=== PATIENT | male | born 1980 | race Caucasian/White ===

== ENCOUNTER 2017-12-05 17:29 | Observation (INO) | payer OTHER ==
--- NOTE | 2017-12-05 17:40 | PDOC ---
Rapid Medical Evaluation Time Seen by Provider: 12/05/17 17:38 Medical Evaluation: 12/05/17 17:48 I have performed a brief in-person evaluation of this patient. The patient presents with a chief complaint of: Dr. Harkins sent for HTN urgency Pertinent physical exam findings: I have ordered the following: labs The patient will proceed to the ED for further evaluation. Discharge Disposition - Diagnosis Hypertensive urgency - Referrals - Patient Instructions - Post Discharge Activity
[2017-12-05 18:37] LABS: BASO % 0.8 % (0-2.0); EOS % 3.1 % (0-4.5); HEMATOCRIT 42.3 % (35.4-49); HEMOGLOBIN 14.1 GM/dL (11.7-16.9); LYMPH % 22.2 % (8-40); MCH 26.6 pg (25.7-33.7); MCHC 33.4 g/dl (32.0-35.9); MEAN CELL VOLUME 79.5 fl (80-96); MEAN PLT VOLUME 8.9 fl (7.5-11.1); MONO % 10.1 % (3.8-10.2); NEUT % 63.8 % (42.8-82.8); PLATELET COUNT 283 K/MM3 (134-434); RBC 5.32 M/mm3 (4.00-5.60); RDW 15.3 % (11.9-15.9); WHITE BLOOD COUNT 9.5 K/mm3 (4.0-10.0)
[2017-12-05 18:46] LABS: INR 1.07 (0.82-1.09); PROTHROMBIN TIME (PATIENT) 12.1 SEC (9.7-13.0)
--- NOTE | 2017-12-05 19:18 | PDOC ---
History of Present Illness - General Chief Complaint: Blood Pressure Problem Stated Complaint: SENT BY PCP Time Seen by Provider: 12/05/17 17:38 History Source: Patient - History of Present Illness Initial Comments: 12/05/17 19:17 Patient is a 37 year old male with a PMH of HTN and HLD who presents to the ED c /o high blood pressure. Patient was evaluated by a regional truck driver today and BP was noted to be 220/140. Patient states he has a h/o BP for which he was prescribed Norvasc (5 mg BID) in early October however he stopped taking the medication 2 weeks previous as it caused headaches and erectile dysfunction. Patient states he has started taking black cumin oil 1-2x weekly for his blood pressure. Patient does not measure his BP at home, but notes at his October appointment with Dr. Ramirez his SBP was in the 190's and his UA showed proteinuria prompting his visit to the regional truck driver today. Patient denies headache, vertigo, visual changes, chest pain, shortness of breath, palpitations. NKDA Surgical:denies Social: denies cigarettes, denies alcohol, denies recreational drugs As per EMR patient's Cr was 2.0 in 09/2017 and 10/2017 and his urine showed 2+ protein on both occasions. Past History - Past Medical History Allergies/Adverse Reactions: Allergies Allergy/AdvReac Type Severity Reaction Status Date / Time No Known Allergies Allergy Verified 12/05/17 17:48 Home Medications: Ambulatory Orders Atorvastatin Ca [Lipitor] 10 mg PO HS 12/05/17 Asthma: Yes COPD: No HTN: Yes Hypercholesterolemia: Yes - Suicide/Smoking/Psychosocial Hx Smoking History: Never smoked Have you smoked in the past 12 months: No Information on smoking cessation initiated: No Hx Alcohol Use: No Drug/Substance Use Hx: No Substance Use Type: None Review of Systems - Review of Systems Constitutional: No: Chills, Fever HEENTM: No: Recent change in vision Respiratory: No: Shortness of Breath Cardiac (ROS): No: Chest Pain, Lightheadedness, Palpitations, Syncope ABD/GI: No: Constipated, Diarrhea, Nausea, Vomiting : No: Burning, Dysuria *Physical Exam - Vital Signs Last Vital Signs Temp Pulse Resp BP Pulse Ox 98.6 F 77 18 224/147 100 12/05/17 17:50 12/05/17 17:50 12/05/17 17:50 12/05/17 17:50 12/05/17 17:50 - Physical Exam Comments: 12/05/17 22:41 GENERAL: Awake, alert, and fully oriented, in no acute distress, obese HEAD: No signs of trauma EYES: PERRLA, EOMI, sclera anicteric, conjunctiva clear ENT: Auricles normal inspection, hearing grossly normal, nares patent, oropharynx clear without exudates. Moist mucosa LUNGS: Breath sounds equal, clear to auscultation bilaterally. No wheezes, and no crackles HEART: Regular rate and rhythm, normal S1 and S2, no murmurs, rubs or gallops ABDOMEN: Soft, nontender, normoactive bowel sounds. No guarding, no rebound. No masses EXTREMITIES: Normal range of motion, no edema. No clubbing or cyanosis. No cords, erythema, or tenderness NEUROLOGICAL: Cranial nerves II through XII intact. 5/5 strength and sensation in all extremities, SKIN: Warm, Dry, normal turgor, no rashes or lesions noted. ED Treatment Course - LABORATORY CBC & Chemistry Diagram: 12/05/17 18:23 12/05/17 18:23 - ADDITIONAL ORDERS Additional order review: Laboratory Results 12/05/17 18:23 PT with INR 12.10 INR 1.07 12/05/17 18:23 RBC 5.32 MCV 79.5 L MCHC 33.4 RDW 15.3 MPV 8.9 Neutrophils % 63.8 Lymphocytes % 22.2 Monocytes % 10.1 Eosinophils % 3.1 Basophils % 0.8 Medical Decision Making - Medical Decision Making 12/05/17 19:21 37 year old male presents with asymptomatic hypertensive emergency (noted to have proteinuria) with BP 220/140 @ nephrology office today. At presentation BP 224/147. As patient has not taken prescribed Norvasc (10 mg) will give OTD and repeat BP. CMP pending. 12/05/17 19:21 ECG shows HR 73, no deviations, normal intervals, possible LVH, good R wave progession V1-V6. No acute ischemia. 12/05/17 21:01 Repeat BP 241/154, CMP shows Cr 1.8 (2.0 in 10/2017), 2+ proteinuria 12/05/17 22:26 BP remains elevated 230/152. Will give 10 IV Labetalol and repeat BP. Likely admit for BP control. 12/05/17 23:06 Repeat BP 203/137 12/05/17 23:46 Case d/w hospitalist admission team. Will give Hydralazine (10 mg) and admit to observation telemetry for continued BP control. Patient and patient's family counseled on POC. *DC/Admit/Observation/Transfer Diagnosis at time of Disposition: Hypertensive urgency - Referrals - Patient Instructions - Post Discharge Activity
--- NOTE | 2017-12-05 19:21 | PDOC ---
Attending Attestation - Resident Resident Name: Sofi Recinos - ED Attending Attestation I have performed the following: I have examined & evaluated the patient, The case was reviewed & discussed with the resident, I agree w/resident's findings & plan, Exceptions are as noted - HPI HPI: 12/05/17 19:23 37 y M hx of htn, hl, referred to the ED by integrated circuit ic layout designer for evaluation of htn. Pt was started on norvasc and was titrated up to 10mg about 2 months ago, but he stopped taking it 1.5 months ago. Pt otherwise asymptomatic, without any headache, dizziness, vision changes, cp, sob, palpitations, abd pain, back pain , numbness/tingling/weakness. bp elevated GENERAL: The patient is awake, alert, and fully oriented, Nontoxic - in no acute distress. HEAD: Normocephalic, atraumatic. EYES: extraocular movements intact, sclera anicteric, conjunctiva clear. ENT: Normal voice, Moist mucous membranes. NECK: Normal range of motion, supple LUNGS: Breath sounds equal, clear to auscultation bilaterally. No wheezes, no rhonchi, no rales. HEART: Regular rate and rhythm, normal S1 and S2 without murmur, rub or gallop. ABDOMEN: Soft, nontender, normoactive bowel sounds. No guarding, no rebound. No CVA tenderness EXTREMITIES: Normal range of motion, trace edema. No clubbing or cyanosis. No cords, erythema, or tenderness. NEUROLOGICAL: No facial assymetry, Normal speech, PSYCH: Normal mood, normal affect. SKIN: Warm, Dry, normal turgor Asymptomatic hypertension Per the patient's former blood work he appears have CK D with baseline creatinine of 2 We'll give the patient his Norvasc will reassess his BP Will discuss with PMD - Physicial Exam PE: 12/06/17 08:29 see above - Medical Decision Making 12/06/17 01:29 pt persistently htn even after iv labetalol will obs for better bp control labs reviewed and unremarkble pt still asypmtmoatic Heart Score/ECG Review - ECG Impressions Comment:: 12/05/17 21:04 Twelve-lead EKG was performed and reviewed by me. There is normal sinus rhythm with a normal rate. rate of 73 The axis is normal. The intervals are normal. Voltage container for LVH
[2017-12-05 19:26] LABS: ALBUMIN 4.2 g/dl (3.4-5.0); ANION GAP 6 (8-16); BLOOD UREA NITROGEN 29 mg/dL (7-18); CALCIUM 9.2 mg/dL (8.5-10.1); CHLORIDE 105 mmol/L (98-107); CO2 28 mmol/L (21-32); CREATININE 1.8 mg/dL (0.7-1.3); GLUCOSE,RANDOM 88 mg/dL (74-106); POTASSIUM 3.6 mmol/L (3.5-5.1); SGOT/AST 16 U/L (15-37); SGPT/ALT 29 U/L (12-78); SODIUM 139 mmol/L (136-145)
[2017-12-05 19:28] LABS: ALK PHOS 87 U/L (45-117); BILIRUBIN,TOTAL 0.3 mg/dL (0.2-1.0); TOT PROT 8.1 g/dl (6.4-8.2)
[2017-12-05] MEDS ORDERED: amLODIPine BESYLATE 10 MG TABLET (FP) PO ONE (19:50)
[2017-12-05] MEDS ORDERED: amLODIPine BESYLATE 5 MG TABLET (FP) ONE (20:19)
[2017-12-05 20:47] LABS: URINE APPEARANCE CLEAR; URINE BILIRUBIN NEGATIVE (<2.0 mg/dL); URINE BLOOD 1+ (NEGATIVE); URINE COLOR LTYELLOW; URINE GLUCOSE (UA) NEGATIVE (NEGATIVE); URINE KETONE NEGATIVE (NEGATIVE); URINE LEUK ESTERASE TRACE (NEGATIVE); URINE NITRITE NEGATIVE (NEGATIVE); URINE UROBILINOGEN NEGATIVE mg/dL (0.2-1.0)
[2017-12-05 21:00] LABS: URINE PROTEIN 2+ (NEGATIVE)
[2017-12-05] MEDS ORDERED: LABETALOL HCL 5 MG/1 ML (100MG/20 ML VIAL) IVPUSH ONE ×2 (22:29→23:37)
[2017-12-05] MEDS ORDERED: LABETALOL HCL 5 MG/1 ML (200MG/40ML VIAL) IVPB ONE (22:31)
--- NOTE | 2017-12-05 23:20 | PN ---
Teaching Attending Note Name of Resident: Cielo Ochoa ATTENDING PHYSICIAN STATEMENT I saw and evaluated the patient. I reviewed the resident's note and discussed the case with the resident. I agree with the resident's findings and plan as documented. SUBJECTIVE: 37 F with hx. of HTN and HLD who presents for HTN urgency. States she was started on Norvasc 2 months ago, but stopped taking it. No dizziness, headaches , lightheadedness or visual changes. No chest pain, pressure, or shortness of breath. States his blood pressure has been 190s over the past several years. States he currently feels well and has no complaints. OBJECTIVE: Physical: VS: Vital Signs Period Temp Pulse Resp BP Sys/Mueller Pulse Ox Last 24 Hr 98.6 F 74-77 18-18 197-230/139-154 100-100 GEN: NAD, Resting in bed, AA0X3 HEENT: NCAT, PERRL, throat without erythema or exudates CARD: RRR S1, S2 RESP: CTAB ABD: BSx4, NTD to palpation EXT:-C/C/E CBCD WBC 9.5 K/mm3 (4.0-10.0) 12/05/17 18: RBC 5.32 M/mm3 (4.00-5.60) 12/05/17 18:23 Hgb 14.1 GM/dL (11.7-16.9) 12/05/17 18: Hct 42.3 % (35.4-49) 12/05/17 18: MCV 79.5 fl (80-96) L 12/05/17 18: MCHC 33.4 g/dl (32.0-35.9) 12/05/17 18: RDW 15.3 % (11.9-15.9) 12/05/17 18: Plt Count 283 K/MM3 (134-434) 12/05/17 18: MPV 8.9 fl (7.5-11.1) 12/05/17 18: CMP Sodium 139 mmol/L (136-145) 12/05/17 18:23 Potassium 3.6 mmol/L (3.5-5.1) 12/05/17 18: Chloride 105 mmol/L (98-107) 12/05/17 18:23 Carbon Dioxide 28 mmol/L (21-32) 12/05/17 18:23 Anion Gap 6 (8-16) L 12/05/17 18:23 BUN 29 mg/dL (7-18) H 12/05/17 18:23 Creatinine 1.8 mg/dL (0.7-1.3) H 12/05/17 18:23 Creat Clearance w eGFR 42.67 (>60) 12/05/17 18: Random Glucose 88 mg/dL (74-106) 12/05/17 18: Calcium 9.2 mg/dL (8.5-10.1) 12/05/17 18: Total Bilirubin 0.3 mg/dL (0.2-1.0) D 12/05/17 18: AST 16 U/L (15-37) D 12/05/17 18: ALT 29 U/L (12-78) D 12/05/17 18:23 Alkaline Phosphatase 87 U/L (45-117) 12/05/17 18: Total Protein 8.1 g/dl (6.4-8.2) 12/05/17 18: Albumin 4.2 g/dl (3.4-5.0) 12/05/17 18:23 EKG: Twelve-lead EKG was performed and reviewed by me. There is normal sinus rhythm with a normal rate. rate of 73 The axis is normal. The intervals are normal. Voltage container for LVH ASSESSMENT AND PLAN: 37 F with HTN urgency 1.) HTN Urgency - Amlodipine - S/P Labetolol in Ed - Hydralazine - Slowly titrate BP down - Echo - Trend Trop/Ekg - Cardiac Monitoring - Cardio Consult 2.) KEISHA - U Lytes - Nephro consult - RENAL US - Renally Dose all meds 3.) Dvt Ppx - SCDS Place in Obs-Tele
[2017-12-05] MEDS ORDERED: hydrALAZINE HCL 10 MG TABLET PO ONE (23:40)
[2017-12-05 23:58] LABS: URINE MUCUS RARE
--- NOTE | 2017-12-06 00:33 | HP ---
CHIEF COMPLAINT: Elevated BP PCP: Dr Ramirez HISTORY OF PRESENT ILLNESS: 37yo M with a PMHx of Uncontrolled HTN was sent to the ER due to elevated BPs. Patient is prescribed Norvasc 5 BID but refuses to take it due to a conglomeration of sfx including erectile dysfunction and skin itching. Instead he takes black cumin seed oil for his pressures. His BPs have been elevated for a while, states when he goes to a local pharmacy and gets his BP checked its always 190s-200s. Routine labwork at Dr Ramirez's office showed proteinuria and he was referred to Dr Adams's office. He went there this AM, had his BP taken, and was sent to the ER. He is asymptomatic. Denies CP, SOB, blury vision, headaches, back pain, etc. On arrival to the ED, his BP was 224/147. After PO Norvasc 10 and IV Labetalol 10 push, his BP gradually came down to 197/139. Labs indicate elevated Cr (at baseline), and 2+ proteinuria Recent Travel: Denies PAST MEDICAL HISTORY: HTN PAST SURGICAL HISTORY: Denies Social History: Smoking: Denies Alcohol: Denies Drugs: Denies Allergies: No Known Allergies Allergy (Verified 12/05/17 17:48) HOME MEDICATIONS: Home Medications Medication Instructions Recorded Atorvastatin Ca [Lipitor] 10 mg PO HS 12/05/17 REVIEW OF SYSTEMS CONSTITUTIONAL: Absent: fever, chills, diaphoresis, generalized weakness, malaise, loss of appetite, weight change HEENT: Absent: rhinorrhea, nasal congestion, throat pain, throat swelling, difficulty swallowing, mouth swelling, ear pain, eye pain, visual changes CARDIOVASCULAR: Absent: chest pain, syncope, palpitations, irregular heart rate , lightheadedness, peripheral edema RESPIRATORY: Absent: cough, shortness of breath, dyspnea with exertion, orthopnea, wheezing, stridor, hemoptysis GASTROINTESTINAL:Absent: abdominal pain, abdominal distension, nausea, vomiting , diarrhea, constipation, melena, hematochezia GENITOURINARY: Absent: dysuria, frequency, urgency, hesitancy, hematuria, flank pain, genital pain MUSCULOSKELETAL: Absent: myalgia, arthralgia, joint swelling, back pain, neck pain SKIN: Absent: rash, itching, pallor HEMATOLOGIC/IMMUNOLOGIC: Absent: easy bleeding, easy bruising, lymphadenopathy, frequent infections ENDOCRINE:Absent: unexplained weight gain, unexplained weight loss, heat intolerance, cold intolerance NEUROLOGIC: Absent: headache, focal weakness or paresthesias, dizziness, unsteady gait, seizure, mental status changes, bladder or bowel incontinence PSYCHIATRIC: Absent: anxiety, depression, suicidal or homicidal ideation, hallucinations. PHYSICAL EXAMINATION Vital Signs Period Temp Pulse Resp BP Sys/Mueller Pulse Ox Last 24 Hr 98.6 F 74-77 18-18 197-230/139-154 100-100 GEN: AAOx3, NAD, but slightly anxious appeaing HEENT: PERRLA, EOMi, no JVD CV: S1, S2, RRR LUNG: CTABL ABD: Soft, NT, ND MSK: No edema, no erythema NEURI: CN 2-12 intact, no msk or sensation deficits, no facial droop ASSESSMENT/PLAN: 37yo M with a PMHx of Uncontrolled HTN was sent to the ER due to elevated BPs, found to have HTN urgency # HTN Urgency -- In the setting of chronic uncontrolled HTN. BP has been slowly improving. Will titrate up hydralazine. Tomorrow, we will start Norvasc and Metoprolol for better BP control. Tele monitoring for BP. EKG shows LVH. Cardiac profile. Echo to look for cardiac changes. Consult cardio # Elevated Cr w/ Proteinuria -- Cr is at baseline and proteinuria is unchanged. This is likely related to his chronic HTN, but will likely need further w/u. Consult Dr Adams. Urine electrolytes. Kidney u/s. Lipid profile to check for HLD # FEN/PPx --No IVF, sodium controlled diet, SCDs # Dispo -- Obs Tele Case d/w Dr Ochoa & Dr Job Holm MD - PGY1 Night Tester Sound Visit type - Emergency Visit Emergency Visit: Yes ED Registration Date: 12/05/17 Care time: The patient presented to the Emergency Department on the above date and was hospitalized for further evaluation of their emergent condition. - New Patient This patient is new to me today: Yes Date on this admission: 12/06/17 - Critical Care Critical Care patient: No Hospitalist Screening - Colonoscopy Questionnaire Colonoscopy Questionnaire: Colonoscopy Questionnaire - Patient: 50 - 75 years old and never had a screening colonoscopy: Unknown History of colon or rectal polyps, or CA: Unknown History of IBD, Crohn's disease or UC: Unknown History of abdominal radiation therapy as a child: Unknown - Relative: 1 with colon or rectal CA, or polyps at age 60 or younger: Unknown Colon or rectal CA diagnosed at age 45 or younger: Unknown Multiple relatives with colon or rectal CA: Unknown - Outcome: Screening Result: Negative Screen
[2017-12-06 01:34] LABS: URINE CREATININE 61.5 mg/dL (20-370)
[2017-12-06 02:54] VITALS: BMI 29.2
[2017-12-06] MEDS ORDERED: hydrALAZINE HCL 25 MG TABLET (FP) PO ONE (03:07)
[2017-12-06] MEDS ORDERED: hydrALAZINE HCL 25 MG TABLET (FP) PO SCH (06:30)
[2017-12-06] MEDS ORDERED: hydrALAZINE HCL 10 MG TABLET PO SCH ×2 (06:30→10:00)
[2017-12-06 07:54] LABS: HEMATOCRIT 40.5 % (35.4-49); HEMOGLOBIN 13.8 GM/dL (11.7-16.9); MCH 26.7 pg (25.7-33.7); MCHC 34.1 g/dl (32.0-35.9); MEAN CELL VOLUME 78.4 fl (80-96); MEAN PLT VOLUME 9.1 fl (7.5-11.1); PLATELET COUNT 289 K/MM3 (134-434); RBC 5.16 M/mm3 (4.00-5.60); RDW 15.3 % (11.9-15.9); WHITE BLOOD COUNT 10.3 K/mm3 (4.0-10.0)
[2017-12-06 07:58] LABS: ANION GAP 7 (8-16); BLOOD UREA NITROGEN 25 mg/dL (7-18); CALCIUM 8.9 mg/dL (8.5-10.1); CHLORIDE 105 mmol/L (98-107); CO2 28 mmol/L (21-32); GLUCOSE,RANDOM 85 mg/dL (74-106); MAGNESIUM 2.3 mg/dL (1.8-2.4); POTASSIUM 3.4 mmol/L (3.5-5.1); SODIUM 140 mmol/L (136-145)
[2017-12-06 08:00] LABS: CREATININE 1.6 mg/dL (0.7-1.3); PHOSPHOROUS 4.1 mg/dL (2.5-4.9)
--- NOTE | 2017-12-06 08:18 | CON.CARD ---
Consult Consult Specialty:: Cardiology Referred by:: Hospitalist Medicine Reason for Consultation:: Hypertensive urgency - History of Present Illness Chief Complaint: Headache History of Present Illness: 37 F with hx. of HTN, proteinuria and HLD who presents for HTN urgency. He was started on Norvasc 2 months ago, but stopped taking it due to headache and erectile dysfujnction. He denies associated dizziness, headaches, lightheadedness, true syncope or visual changes. No chest pain, pressure, or shortness of breath. States his blood pressure has been 190s over the past several years. States he currently feels well and has no complaints. - History Source History Provided By: Patient Limitations to Obtaining History: No Limitations - Alcohol/Substance Use Hx Alcohol Use: No - Smoking History Smoking history: Never smoked Have you smoked in the past 12 months: No Home Medications - Allergies Allergies/Adverse Reactions: Allergies Allergy/AdvReac Type Severity Reaction Status Date / Time No Known Allergies Allergy Verified 12/05/17 17:48 - Home Medications Home Medications: Ambulatory Orders Atorvastatin Ca [Lipitor] 10 mg PO HS 12/05/17 Review of Systems - Review of Systems Neurological: reports: Headache Vital Signs: Vital Signs Temperature 97.9 F 12/06/17 06:00 Pulse Rate 75 12/06/17 06:00 Respiratory Rate 18 12/06/17 06:00 Blood Pressure 204/134 12/06/17 06:00 O2 Sat by Pulse Oximetry (%) 100 12/06/17 01:30 Constitutional: Yes: No Distress, Calm Neck: Yes: Supple Respiratory: Yes: Regular, CTA Bilaterally Gastrointestinal: Yes: Normal Bowel Sounds, Soft Cardiovascular: Yes: Regular Rate and Rhythm JVD: No Carotid Bruit: No Heart Sounds: Yes: S1, S2 Edema: No - Other Data Labs, Other Data: CBC, BMP 12/06/17 06:37 INR, PTT INR 1.07 (0.82-1.09) 12/05/17 18:23 Troponin, BNP 12/06/17 00:00 Troponin I 0.03 Troponin, BNP 12/06/17 00:00 Troponin I 0.03 NSR LVH Ejection Fraction %: LVEF > or = 40 % Imaging - Results Ultrasound: Report Reviewed (Normal kidneys without hydronephrosis) Problem List - Problems (1) [id number] kidney injury Code(s): N17.9 - ACUTE KIDNEY FAILURE, UNSPECIFIED; N18.9 - CHRONIC KIDNEY DISEASE, UNSPECIFIED Qualifiers: Chronic kidney disease stage: stage 2 (mild) (2) Hypertensive urgency Code(s): I16.0 - HYPERTENSIVE URGENCY Assessment/Plan 1. Hypertensive urgency 2. Acute on CKD with underlying proteinuria due to above improving P:1. Change Lopressor to carvedilol, continue Norvasc, change hydralazine to ARB once renal fxn stabilizes with uptitration as tolerated 2. F/u echocardiogram to assess ventricular and valve fxn 3. Renovascular ultrasound to r/o renal artery stenosis, work-up for secondary causes of hypertension 4. Thank you for consultative opportunity
[2017-12-06] MEDS: CARVEDILOL 6.25 MG TABLET (FP) PO SCH ×2 (09:04→21:15)
[2017-12-06] MEDS ORDERED: amLODIPine BESYLATE 10 MG TABLET (FP) PO SCH (10:00)
[2017-12-06] MEDS ORDERED: METOPROLOL TARTRATE 25 MG TABLET (FP) PO SCH ×2 (10:00)
--- NOTE | 2017-12-06 10:17 | EKG ---
Test Reason : Blood Pressure : / mmHG Vent. Rate : 073 BPM Atrial Rate : 073 BPM P-R Int : 158 ms QRS Dur : 098 ms QT Int : 430 ms P-R-T Axes : 002 -10 -05 degrees QTc Int : 473 ms NORMAL SINUS RHYTHM VOLTAGE CRITERIA FOR LEFT VENTRICULAR HYPERTROPHY ABNORMAL ECG NO PREVIOUS ECGS AVAILABLE Confirmed by MD WOODROW, MELISSA ([id number]) on 12/06/2017 10:17:00 AM Referred By: Confirmed By:MELISSA TROY MD
[2017-12-06] MEDS ORDERED: hydrALAZINE HCL 20 MG/ML VIAL IVPUSH PRN (10:43)
--- NOTE | 2017-12-06 11:03 | PN ---
Progress Note (short form) - Note Progress Note: Pt examined Events noted BP very high-- 192/125 HR- 88 Pt is asymptomatic No headaches, blurry vision, sob , chest pain S1 S2 RRR No murmurs Lungs clear no edema Vital Signs - 24 hr 12/05/17 12/05/17 12/05/17 17:50 20:28 22:15 Temperature 98.6 F Pulse Rate 77 Pulse Rate [ 77 75 Radial] Respiratory 18 18 18 Rate Blood Pressure 224/147 Blood Pressure 223/154 230/152 [Right Arm] O2 Sat by Pulse 100 100 100 Oximetry (%) 12/05/17 12/05/17 12/06/17 23:20 23:45 01:30 Temperature 97.6 F Pulse Rate 67 71 Pulse Rate [ 74 Radial] Respiratory 18 18 18 Rate Blood Pressure 193/129 Blood Pressure 197/139 [Right Arm] O2 Sat by Pulse 100 100 100 Oximetry (%) 12/06/17 12/06/17 12/06/17 04:00 06:00 08:06 Temperature 97.5 F L 97.9 F Pulse Rate 67 75 Pulse Rate [ Radial] Respiratory 18 18 18 Rate Blood Pressure 186/117 204/134 Blood Pressure [Right Arm] O2 Sat by Pulse 100 Oximetry (%) 12/06/17 09:00 Temperature 98.2 F Pulse Rate 82 Pulse Rate [ Radial] Respiratory 18 Rate Blood Pressure 189/112 Blood Pressure [Right Arm] O2 Sat by Pulse Oximetry (%) Current Medications Generic Name Dose Route Start Last Admin Trade Name Freq PRN Reason Stop Dose Admin Carvedilol 6.25 mg 12/06/17 10:00 12/06/17 09:04 Coreg - PO 6.25 mg BID [facility] Administration Hydralazine HCl 10 mg 12/06/17 10:43 Apresoline Injection - IVPUSH Q6H PRN HYPERTENSION Hydralazine HCl 50 mg 12/06/17 10:44 Apresoline - PO TID ADAL Lisinopril 10 mg 12/06/17 11:00 Prinivil PO DAILY [facility] Laboratory Results - last 24 hr 12/05/17 12/05/17 12/05/17 18:23 18:23 18:23 WBC 9.5 RBC 5.32 Hgb 14.1 Hct 42.3 MCV 79.5 L MCH 26.6 MCHC 33.4 RDW 15.3 Plt Count 283 MPV 8.9 Neutrophils % 63.8 Lymphocytes % 22.2 Monocytes % 10.1 Eosinophils % 3.1 Basophils % 0.8 PT with INR 12.10 INR 1.07 Sodium 139 Potassium 3.6 Chloride 105 Carbon Dioxide 28 Anion Gap 6 L BUN 29 H Creatinine 1.8 H Creat Clearance w eGFR 42.67 Random Glucose 88 Calcium 9.2 Phosphorus Magnesium Total Bilirubin 0.3 D AST 16 D ALT 29 D Alkaline Phosphatase 87 Troponin I Total Protein 8.1 Albumin 4.2 Urine Color Urine Appearance Urine pH Ur Specific [place] Urine Protein Urine Glucose (UA) Urine Ketones Urine Blood Urine Nitrite Urine Bilirubin Urine Urobilinogen Ur Leukocyte Esterase Urine WBC (Auto) Urine RBC (Auto) Urine Mucus Ur Random Sodium Ur Random Potassium Ur Random Chloride Urine Creatinine 12/05/17 12/06/17 12/06/17 20:20 00:00 00:24 WBC RBC Hgb Hct MCV MCH MCHC RDW Plt Count MPV Neutrophils % Lymphocytes % Monocytes % Eosinophils % Basophils % PT with INR INR Sodium Potassium Chloride Carbon Dioxide Anion Gap BUN Creatinine Creat Clearance w eGFR Random Glucose Calcium Phosphorus Magnesium Total Bilirubin AST ALT Alkaline Phosphatase Troponin I 0.03 Total Protein Albumin Urine Color Ltyellow Urine Appearance Clear Urine pH 5.0 Ur Specific [place] 1.017 Urine Protein 2+ H Urine Glucose (UA) Negative Urine Ketones Negative Urine Blood 1+ H Urine Nitrite Negative Urine Bilirubin Negative Urine Urobilinogen Negative Ur Leukocyte Esterase Trace Urine WBC (Auto) 3 Urine RBC (Auto) 2 Urine Mucus Rare Ur Random Sodium 93 Ur Random Potassium 22.4 Ur Random Chloride 96 Urine Creatinine 61.5 12/06/17 12/06/17 06:37 06:37 WBC 10.3 H RBC 5.16 Hgb 13.8 Hct 40.5 MCV 78.4 L MCH 26.7 MCHC 34.1 RDW 15.3 Plt Count 289 MPV 9.1 Neutrophils % Lymphocytes % Monocytes % Eosinophils % Basophils % PT with INR INR Sodium 140 Potassium 3.4 L Chloride 105 Carbon Dioxide 28 Anion Gap 7 L BUN 25 H Creatinine 1.6 H Creat Clearance w eGFR Random Glucose 85 Calcium 8.9 Phosphorus 4.1 Magnesium 2.3 Total Bilirubin AST ALT Alkaline Phosphatase Troponin I Total Protein Albumin Urine Color Urine Appearance Urine pH Ur Specific [place] Urine Protein Urine Glucose (UA) Urine Ketones Urine Blood Urine Nitrite Urine Bilirubin Urine Urobilinogen Ur Leukocyte Esterase Urine WBC (Auto) Urine RBC (Auto) Urine Mucus Ur Random Sodium Ur Random Potassium Ur Random Chloride Urine Creatinine PLAN DC Norvasc-- h/o erectile dysfunction Increase Hydralazine HYdralazine IVPB PRN Add Lisinopril spoke with Renal on Coreg renal sono noted Problem List - Problems (1) [id number] kidney injury Code(s): N17.9 - ACUTE KIDNEY FAILURE, UNSPECIFIED; N18.9 - CHRONIC KIDNEY DISEASE, UNSPECIFIED Qualifiers: Chronic kidney disease stage: stage 2 (mild) (2) Hypertensive urgency Code(s): I16.0 - HYPERTENSIVE URGENCY
[2017-12-06] MEDS: LISINOPRIL 10 MG TABLET (FP) PO SCH (11:28)
[2017-12-06] MEDS: hydrALAZINE HCL 50 MG TABLET (FP) PO SCH ×2 (13:53→21:15)
--- NOTE | 2017-12-06 15:22 | CONSULT ---
Consult - text type - Consultation Consultation Note: Renal Consult for CKD and Uncontrolled Hypertension This is a 37 year old gentleman that was seen in our office yesterday with PMhx of CKD, Hypertension, Hyperlipidemia sent to ED with hypertensive urgency/ emergency. Pt reports he self d/c his amlodipine b/c of erectile dysfunction. Pt started on Amlodipine, Hydralazine with mild improvement in BP. Pt makes urine, no abd pain, N/V/D. No flank pain. No hematuria. Denies any NSAIDs. No VENCES , confusion, lethargy or weakness. PMhx: as above Allergies: NKDA Family Hx: Yasmin with ICH/Cerebral aneurysm, Father ESRD on HD Social Hx: No T/A/D Home Medications Medication Instructions Recorded Atorvastatin Ca [Lipitor] 10 mg PO HS 12/05/17 Vital Signs Temperature 98.8 F 12/06/17 14:00 Pulse Rate 84 12/06/17 14:00 Respiratory Rate 16 12/06/17 14:00 Blood Pressure 182/106 12/06/17 14:00 O2 Sat by Pulse Oximetry (%) 100 12/06/17 08:06 Intake & Output 12/03/17 12/04/17 12/05/17 12/06/17 23:59 23:59 23:59 23:59 Intake Total 650 Balance 650 Weight 90.718 kg 89.63 kg NAD awake and alert RRR, no M/R CTA soft NT/ND, no Abd bruit No LE edema, clubbing or cyanosis No bladder distension CBC, BMP 12/06/17 06:37 12/06/17 06:37 Current Medications Carvedilol (Coreg -) 6.25 mg PO BID [facility] Last Admin: 12/06/17 09:04 Dose: 6.25 mg Hydralazine HCl (Apresoline Injection -) 10 mg IVPUSH Q6H PRN PRN Reason: HYPERTENSION Hydralazine HCl (Apresoline -) 50 mg PO TID [facility] Last Admin: 12/06/17 13:53 Dose: 50 mg Lisinopril (Prinivil) 10 mg PO DAILY [facility] Last Admin: 12/06/17 11:28 Dose: 10 mg 37 year old gentleman that was seen in our office yesterday with PMhx of CKD, Hypertension, Hyperlipidemia sent to ED with hypertensive urgency/emergency. Pt reports he self d/c his amlodpine b/c of erectile dysfunction. #Uncontrolled Hypertension/Hypertensive urgency #CKD vs. KEISHA #Hyperlipidemia #Hypokalemia Agree with restarting amlodipine Start Lisinpril 10mg Daily (Cr this admission is improved from 2 as outpatient) goal BP ~180/100 today Check Renin, Aldosterone, Renal Artery Doppler, Cortisol Trend BUN/Cr and electrolytes daily Trend K daily Low salt diet Nutrition consult for low sodium diet Monitor in hospital for now Thank you Will follow Torin Adams DO
[2017-12-07] MEDS: hydrALAZINE HCL 50 MG TABLET (FP) PO SCH ×2 (05:24→13:50)
[2017-12-07 07:28] LABS: CHLORIDE 105 mmol/L (98-107); POTASSIUM 3.7 mmol/L (3.5-5.1); SODIUM 138 mmol/L (136-145)
[2017-12-07 07:39] LABS: ANION GAP 8 (8-16); BLOOD UREA NITROGEN 34 mg/dL (7-18); CHOLESTEROL 194 mg/dL (50-200); CO2 25 mmol/L (21-32); CREATININE 2.2 mg/dL (0.7-1.3); GLUCOSE,RANDOM 89 mg/dL (74-106); HDL CHOLESTEROL 42 mg/dL (40-60); LDL CHOLESTEROL (ONLY SJRH) 131 mg/dL (5-100); TRIGLYCERIDES 176 mg/dL (35-160)
--- NOTE | 2017-12-07 09:36 | PN ---
Progress Note, Physician History of Present Illness: BP improved, denies symptoms. - Current Medication List Current Medications: Active Medications Carvedilol (Coreg -) 6.25 mg PO BID [facility] Last Admin: 12/06/17 21:15 Dose: 6.25 mg Hydralazine HCl (Apresoline Injection -) 10 mg IVPUSH Q6H PRN PRN Reason: HYPERTENSION Hydralazine HCl (Apresoline -) 50 mg PO TID [facility] Last Admin: 12/07/17 05:24 Dose: 50 mg Lisinopril (Prinivil) 10 mg PO DAILY [facility] Last Admin: 12/06/17 11:28 Dose: 10 mg - Objective Vital Signs: Vital Signs Temperature 98.8 F 12/07/17 05:28 Pulse Rate 76 12/07/17 05:28 Respiratory Rate 14 12/07/17 05:28 Blood Pressure 151/96 12/07/17 05:28 O2 Sat by Pulse Oximetry (%) 96 12/07/17 05:00 Constitutional: Yes: No Distress, Calm Neck: Yes: Supple Cardiovascular: Yes: Regular Rate and Rhythm Respiratory: Yes: Regular, CTA Bilaterally Gastrointestinal: Yes: Normal Bowel Sounds, Soft Edema: No Labs: CBC, BMP 12/06/17 06:37 12/07/17 06:25 INR, PTT INR 1.07 (0.82-1.09) 12/05/17 18:23 - ....Imaging EKG: Report Reviewed (Tele: SR) Problem List - Problems (1) [id number] kidney injury Code(s): N17.9 - ACUTE KIDNEY FAILURE, UNSPECIFIED; N18.9 - CHRONIC KIDNEY DISEASE, UNSPECIFIED Qualifiers: Chronic kidney disease stage: stage 2 (mild) (2) Hypertensive urgency Code(s): I16.0 - HYPERTENSIVE URGENCY (3) Proteinuria Code(s): R80.9 - PROTEINURIA, UNSPECIFIED Qualifiers: Proteinuria type: unspecified Qualified Code(s): R80.9 - Proteinuria, unspecified Assessment/Plan 12/06/2017 Echo: Mild-mod cLVH, normal biventricular size and fxn, normal biatrial sizes, abnl LV compliance 1. Hypertensive urgency improving with underlying hypertensive cardiomyopathy 2. Acute on CKD with underlying proteinuria 3, Hyperlipidemia P:1. Increase carvedilol 12.5 bid, continue hydralazine 50 tid and lisinopril 10 qd with monitor renal fxn, electrolytes and uptitration as tolerated 2. Renovascular ultrasound to r/o renal artery stenosis, work-up for secondary causes of hypertension including Renin, Aldosterone, Cortisol, may be followed as outpatient
[2017-12-07] MEDS ORDERED: CARVEDILOL 12.5 MG TABLET (FP) PO SCH (10:00)
[2017-12-07] MEDS: LISINOPRIL 10 MG TABLET (FP) PO SCH (10:05)
--- NOTE | 2017-12-07 13:19 | DS ---
Physical Examination Vital Signs: Vital Signs Temperature 98.2 F 12/07/17 09:45 Pulse Rate 85 12/07/17 09:45 Respiratory Rate 18 12/07/17 09:45 Blood Pressure 157/97 12/07/17 09:45 O2 Sat by Pulse Oximetry (%) 96 12/07/17 05:00 Constitutional: Yes: No Distress, Calm Cardiovascular: Yes: Regular Rate and Rhythm Respiratory: Yes: CTA Bilaterally Gastrointestinal: Yes: Normal Bowel Sounds, Soft. No: Tenderness Edema: No Labs: CBC, BMP 12/06/17 06:37 12/07/17 06:25 Discharge Summary Reason For Visit: HYPERTENSIVE EMERGENCY Current Active Problems Jrgpe-ta-[id number] kidney injury (Acute) Hypertensive urgency (Acute) Proteinuria (Acute) Hospital Course: Admitted for hypertensive urgency Seen by Cardiology and Renal Meds adjusted-- now on Lisinopril, Hydralazine, Coreg Pt's BP better controlled-- not perfect yet Sodium free diet Pt will do HTN work up as an outpt Stable for dc home spoke with Renal -- Dr Adams - Instructions Referrals: Caro Ramirez MD [Primary Care Provider] - Torin Adams MD [Staff Physician] - Disposition: HOME - Home Medications Comprehensive Discharge Medication List: Ambulatory Orders Atorvastatin Ca [Lipitor] 10 mg PO HS 12/05/17
[2017-12-07 15:38] VITALS: PULSE 78
[2017-12-07 18:58] VITALS: BP 148/89; TEMP 98
--- NOTE | 2017-12-07 19:14 | PN ---
Progress Note (short form) - Note Progress Note: Renal follow up for CKD/Hypertensive Urgency Pt seen and examined at the bedside no acute complaints. no VENCES, blurry vision no dizziness, lightheadedness Vital Signs Temperature 98.0 F 12/07/17 17:00 Pulse Rate 78 12/07/17 17:00 Respiratory Rate 18 12/07/17 17:00 Blood Pressure 148/89 12/07/17 17:00 O2 Sat by Pulse Oximetry (%) 96 12/07/17 05:00 Intake & Output 12/04/17 12/05/17 12/06/17 12/07/17 23:59 23:59 23:59 23:59 Intake Total 1130 370 Balance 1130 370 Weight 90.718 kg 89.63 kg NAD awake and alert RRR, No M/R CTA no LE edema CBC, BMP 12/06/17 06:37 12/07/17 06:25 37 year old gentleman that was seen in our office yesterday with PMhx of CKD, Hypertension, Hyperlipidemia sent to ED with hypertensive urgency/emergency. Pt reports he self d/c his amlodpine b/c of erectile dysfunction. #Uncontrolled Hypertension/Hypertensive urgency #CKD vs. KEISHA #Hyperlipidemia #Hypokalemia BP much improved with LIsinopril, Coreg and Hydralazine Low salt diet Cr noted to move from 1.6 to 2.2 but expected with addition of JAY and lower BP OK to discharge and follow up in our office in 1 week Torin Adams DO
[2017-12-08 06:08] LABS: CORTISOL AM 17.1 ug/dL (.)
== END 2017-12-07 18:28 | disposition home or self-care (01) ==
LOC: JER 17:29 → JERBED 23:29 → J4W 12-06 01:19
PROVIDERS: ADMIT Internal Medicine; ATTEND Internal Medicine
PROC: 3E033GC Introduction of Other Therapeutic Substance into Peripheral Vein, Percutaneous Approach (ICD-10-PCS; principal; 2017-12-05)
DX: I16.0 Hypertensive urgency (principal); I12.9 Hypertensive chronic kidney disease with stage 1 through stage 4 chronic kidney disease, or unspecified chronic kidney disease; N18.9 Chronic kidney disease, unspecified; N17.9 Acute kidney failure, unspecified; E78.5 Hyperlipidemia, unspecified; J45.909 Unspecified asthma, uncomplicated; R79.89 Other specified abnormal findings of blood chemistry; R80.9 Proteinuria, unspecified; E87.6 Hypokalemia
CPT/HCPCS: 36415; 76775-TC; 80048; 80053; 80061; 81003; 81015; 82088; 82436; 82533; 82570; 83721; 83735; 84100; 84133; 84244; 84300; 84484; 85025; 85027; 85610; 87086; 93005; 93010; 93306-TC; 96374; 96376; 99285-25; G0378

== ENCOUNTER 2018-02-01 13:56 | Emergency (ER) | payer OTHER ==
[2018-02-01 14:01] VITALS: TEMP 98; BMI 27.0
[2018-02-01] MEDS ORDERED: NIFEdipine E.R 60 MG TABLET (UD) PO SCH (15:30)
--- NOTE | 2018-02-01 15:30 | PDOC ---
History of Present Illness - General Chief Complaint: Blood Pressure Problem Stated Complaint: HYPERTENTION - History of Present Illness Initial Comments: 02/01/18 15:25 37 year year old male with a hx of uncontrolled HTN and hyperlipidemia presents for high blood pressure after missing his dose of nifedipine last night. He states that he was previously on hydralazine and was taken off around one week ago due to left sided chest wall pains, which persist until now. He checked his blood pressure today and noted it to be elevated. He states that he forgot his nifedipine dose last night and just fell asleep without taking it. Denies current chest pain, headaches, blurry vision shortness of breath, fevers, chills , nausea, vomiting, diarrhea. Allergies: pollen Smoking: none Drinking: none PMD Dr. Ramirez Manager Field Dr. Adams 02/01/18 15:31 Past History - Past Medical History Allergies/Adverse Reactions: Allergies Allergy/AdvReac Type Severity Reaction Status Date / Time No Known Allergies Allergy Verified 02/01/18 13:57 Home Medications: Ambulatory Orders Atorvastatin Ca [Lipitor] 10 mg PO HS 12/05/17 Carvedilol [Coreg -] 12.5 mg PO BID #60 tablet 12/07/17 Lisinopril [Prinivil] 10 mg PO DAILY #60 tablet 12/07/17 hydrALAZINE HCL [Apresoline -] 50 mg PO TID #60 tablet 12/07/17 Asthma: Yes COPD: No DVT: No HTN: Yes Hypercholesterolemia: Yes - Suicide/Smoking/Psychosocial Hx Smoking History: Never smoked Have you smoked in the past 12 months: No Information on smoking cessation initiated: No Hx Alcohol Use: No Drug/Substance Use Hx: No Substance Use Type: None Review of Systems - Review of Systems Constitutional: No: Chills, Fever Respiratory: No: Cough, Shortness of Breath Cardiac (ROS): No: Chest Pain *Physical Exam - Vital Signs Last Vital Signs Temp Pulse Resp BP Pulse Ox 98.0 F 70 18 158/111 100 02/01/18 13:59 02/01/18 13:59 02/01/18 13:59 02/01/18 13:59 02/01/18 13:59 - Physical Exam Comments: 02/01/18 15:31 GENERAL: A&Ox3, no acute distress EYES: PERRLA, EOMI ENT: Moist mucus membranes NECK: No JVD LUNGS: CTA, no wheezes HEART: RRR, no murmurs, mildly tender to palpation of L chest wall ABDOMEN: Soft, nontender, BS present MUSCULOSKELETAL: No CVA Tenderness EXTREMITIES: 2+ pulses, no edema. NEUROLOGICAL: Cranial nerves II-XII intact. ED Treatment Course - LABORATORY CBC & Chemistry Diagram: 02/01/18 16:23 02/01/18 16:23 Medical Decision Making - Medical Decision Making 02/01/18 15:31 37 year old male hx of hypertension and HLD presents for high blood pressure after missing his dose of nifedipine -CBC, CMP, EKG -give his dose of nifedipine 60mg ER -recheck BP 02/01/18 17:21 -recheck BP 170/110 -check trop now and at 7:30 -if negative, will send home with close PCP followup 02/01/18 18:05 -first troponin negative, will recheck at 7:30pm 02/01/18 18:45 -BP at 18:45 is 158/111 -waiting on troponin at 7:30 *DC/Admit/Observation/Transfer Diagnosis at time of Disposition: Hypertension - Discharge Dispostion Disposition: HOME Condition at time of disposition: Stable Decision to Admit order: No - Referrals Referrals: Caro Ramirez MD [Primary Care Provider] - - Patient Instructions Additional Instructions: You were seen in the hospital for high blood pressure. Please make sure not to miss your doses of medications. Your blood tests were all within normal limits Make an appointment with your primary care physician with in 3 days of discharge. If you experience further chest pain, shortness of breath, nausea, vomiting, diarrhea, please return to the emergency department - Post Discharge Activity
--- NOTE | 2018-02-01 16:02 | EKG ---
Test Reason : Blood Pressure : / mmHG Vent. Rate : 066 BPM Atrial Rate : 066 BPM P-R Int : 158 ms QRS Dur : 098 ms QT Int : 414 ms P-R-T Axes : 017 011 013 degrees QTc Int : 434 ms NORMAL SINUS RHYTHM NORMAL ECG WHEN COMPARED WITH ECG OF 05-DEC-2017 18:19, NO SIGNIFICANT CHANGE WAS FOUND Confirmed by MEHRDAD TELLES MD ([id number]) on 02/01/2018 4:02:04 PM Referred By: Confirmed By:MEHRDAD TELLES MD
--- NOTE | 2018-02-01 16:29 | PDOC ---
Attending Attestation - HPI HPI: 02/01/18 16:29 The patient is a 37 year old male, with a significant past medical history of hypertension and hyperlipidemia, who presents to the emergency department after missing a dose of his blood pressure medication last night. The patient reports forgetting to take his blood pressure medication yesterday, and subsequently developing high blood pressure today. He denies any chest pain, headache, blurry vision, shortness of breath, fever, chills, nausea, vomiting, diarrhea, or changes in bowel/bladder habits. He denies any recent travel or sick contacts. Allergies: NKDA PCP: Dr. Ramirez [facility] Chief Librarian: Dr. Adams - Physicial Exam PE: 02/01/18 16:29 GENERAL: Awake, alert, and fully oriented, in no acute distress HEAD: No signs of trauma EYES: PERRLA, EOMI, sclera anicteric, conjunctiva clear ENT: Auricles normal inspection, hearing grossly normal, nares patent. Moist mucosa NECK: Normal ROM, supple, no lymphadenopathy, JVD, or masses LUNGS: Breath sounds equal, clear to auscultation bilaterally. No wheezes, and no crackles HEART: Regular rate and rhythm, normal S1 and S2, no murmurs, rubs or gallops ABDOMEN: Soft, nontender, normoactive bowel sounds. No guarding, no rebound. No masses EXTREMITIES: Normal range of motion, no edema. No clubbing or cyanosis. No cords, erythema, or tenderness. DP/PT pulses 2+ and symmetric. Warm and well perfused. NEUROLOGICAL: Moves all extremities. Normal speech, normal gait SKIN: Warm, Dry, normal turgor, no rashes or lesions noted. - Medical Decision Making 02/01/18 16:29 Documentation prepared by Rajan Cowart, acting as certified medical technician assistant for Azra Vaughan MD. <Rajan Cowart - Last Filed: 02/01/18 16:49> - Resident Resident Name: Balbir Urena - ED Attending Attestation I have performed the following: I have examined & evaluated the patient, The case was reviewed & discussed with the resident, I agree w/resident's findings & plan - Medical Decision Making 02/01/18 17:37 37 yo male with h/o htn, missed his bp meds yesterday here bc elevated bp. pt has had some chest discomfort described as itching on his skin and anxiety related to it previously after starting hydralazine. he mentioned to his doctor and hydralazine was switched to nifedipine. since no longer having anxiety. has had a stress test 5 yrs ago which was negative. no family h/o cad. no leg swelling. no vb no headache. normal exam. plan differential htn, emergency vs urgency. labs ekg trop will consider rpt <Azra Vaughan - Last Filed: 02/01/18 17:39>
[2018-02-01 16:52] LABS: BASO % 0.4 % (0-2.0); EOS % 1.7 % (0-4.5); HEMATOCRIT 39.8 % (35.4-49); LYMPH % 22.7 % (8-40); MCH 26.4 pg (25.7-33.7); MCHC 32.6 g/dl (32.0-35.9); MEAN PLT VOLUME 9.2 fl (7.5-11.1); MONO % 9.8 % (3.8-10.2); NEUT % 65.4 % (42.8-82.8); PLATELET COUNT 304 K/MM3 (134-434); RBC 4.91 M/mm3 (4.00-5.60); RDW 15.3 % (11.9-15.9); WHITE BLOOD COUNT 6.6 K/mm3 (4.0-10.0)
[2018-02-01 17:28] LABS: ANION GAP 6 (8-16); BILIRUBIN,TOTAL 0.3 mg/dL (0.2-1.0); BLOOD UREA NITROGEN 26 mg/dL (7-18); CALCIUM 9.1 mg/dL (8.5-10.1); CHLORIDE 103 mmol/L (98-107); CO2 31 mmol/L (21-32); GLUCOSE,RANDOM 86 mg/dL (74-106); POTASSIUM 4.3 mmol/L (3.5-5.1); SGOT/AST 16 U/L (15-37); SGPT/ALT 52 U/L (12-78); SODIUM 140 mmol/L (136-145); TOT PROT 7.9 g/dl (6.4-8.2)
[2018-02-01 17:31] LABS: ALK PHOS 68 U/L (45-117)
--- NOTE | 2018-02-01 21:43 | PDOC ---
*Physical Exam - Vital Signs Last Vital Signs Temp Pulse Resp BP Pulse Ox 98.0 F 66 16 155/113 92 L 02/01/18 13:59 02/01/18 20:13 02/01/18 20:13 02/01/18 20:13 02/01/18 20:13 - Physical Exam Comments: 02/01/18 21:40 GENERAL: Awake, alert, and fully oriented, in no acute distress HEAD: No signs of trauma, normocephalic, atraumatic EYES: PERRLA, EOMI, sclera anicteric, conjunctiva clear ENT: Auricles normal inspection, hearing grossly normal, nares patent, oropharynx clear without exudates. Moist mucosa NECK: Normal ROM, supple, no lymphadenopathy, JVD, or masses LUNGS: No distress, speaks full sentences, clear to auscultation bilaterally HEART: Regular rate and rhythm, normal S1 and S2, no murmurs, rubs or gallops, peripheral pulses normal and equal bilaterally. EXTREMITIES: Normal inspection, Normal range of motion, no edema. No clubbing or cyanosis. NEUROLOGICAL: Cranial nerves II through XII grossly intact. Normal speech, normal gait, no focal sensorimotor deficits SKIN: Warm, Dry, normal turgor, no rashes or lesions noted. ED Treatment Course - LABORATORY CBC & Chemistry Diagram: 02/01/18 16:23 02/01/18 16:23 - ADDITIONAL ORDERS Additional order review: Laboratory Results 02/01/18 02/01/18 19:45 16:23 Sodium 140 Potassium 4.3 Chloride 103 Carbon Dioxide 31 D Anion Gap 6 L BUN 26 H D Creatinine 2.0 H Creat Clearance w eGFR 37.78 Random Glucose 86 Calcium 9.1 Total Bilirubin 0.3 AST 16 ALT 52 D Alkaline Phosphatase 68 Creatine Kinase 96 87 Troponin I < 0.02 < 0.02 D Total Protein 7.9 Albumin 4.0 02/01/18 16:23 RBC 4.91 MCV 81.0 MCHC 32.6 RDW 15.3 MPV 9.2 Neutrophils % 65.4 Lymphocytes % 22.7 Monocytes % 9.8 Eosinophils % 1.7 Basophils % 0.4 Medical Decision Making - Medical Decision Making 02/01/18 21:[address] Urena. Patient is 37M with history of HTN here today with chest pain and HTN. Pending troponin. Good to go home if normal. Second trop normal. Patient states his chest pain has improved. Discharged with return precautions and instructions to follow up. *DC/Admit/Observation/Transfer Diagnosis at time of Disposition: Hypertension - Discharge Dispostion Disposition: HOME Condition at time of disposition: Stable - Referrals Referrals: Caro Ramirez MD [Primary Care Provider] - - Patient Instructions Additional Instructions: You were seen in the hospital for high blood pressure. Please make sure not to miss your doses of medications. Your blood tests were all within normal limits Make an appointment with your primary care physician with in 3 days of discharge. If you experience further chest pain, shortness of breath, nausea, vomiting, diarrhea, please return to the emergency department - Post Discharge Activity
[2018-02-01 21:56] VITALS: BP 152/97; PULSE 74
== END 2018-02-01 21:56 | disposition home or self-care (01) ==
LOC: JER 13:56
DX: I10 Essential (primary) hypertension (principal); E78.5 Hyperlipidemia, unspecified
CPT/HCPCS: 36415; 80053; 82550; 84484; 85025; 93005; 93010; 99282-25

== ENCOUNTER 2018-08-10 05:09 | Day surgery (SDC) | payer OTHER ==
[2018-08-09 09:25] VITALS: BMI 23.4
[2018-08-10] MEDS ORDERED: ACETAMINOPHEN 1000 MG/100 ML VIAL (NON FORMULARY) IVPB ONE (12:26)
--- NOTE | 2018-08-10 12:26 | HP ---
History & Physical Update - History History: No Change - Physical Physical: No Change - Assessment Assessment: No Change - Plan Plan: No Change
[2018-08-10] MEDS ORDERED: MIDAZOLAM HCL 2 MG/2 ML SINGLE DOSE VIAL ONE ×2 (12:29)
[2018-08-10] MEDS ORDERED: DEXTROSE 5%-0.45% SALINE 1,000 ML IV SCH (12:30)
[2018-08-10] MEDS ORDERED: IBUPROFEN 800 MG/8 ML IJ IVPB SCH (12:30)
[2018-08-10] MEDS ORDERED: SUCCINYLCHOLINE CHLORIDE 200 MG/10 ML VIAL ONE (12:33)
[2018-08-10] MEDS ORDERED: PROPOFOL 20 ML ONE ×2 (12:33→12:37)
[2018-08-10] MEDS ORDERED: ceFAZolin SODIUM 1 GM VIAL IVPB ONE (12:37)
[2018-08-10] MEDS ORDERED: LIDOCAINE HCL 1%, 10 MG/ML (20ML VIAL) ONE (12:39)
[2018-08-10] MEDS ORDERED: LIDOCAINE HCL 1%, 10 MG/ML (20ML VIAL) NR ONE ×2 (12:42)
[2018-08-10] MEDS ORDERED: ONDANSETRON 4 MG/2 ML VIAL IVPUSH PRN (13:22)
[2018-08-10] MEDS ORDERED: PROMETHAZINE HCL 25 MG/1 ML VIAL IVPUSH PRN (13:22)
[2018-08-10] MEDS ORDERED: oxyCODONE HCL 5 MG TABLET PO PRN (13:22)
[2018-08-10] MEDS ORDERED: LACTATED RINGERS SOLUTION 1,000 ML IV SCH (13:30)
[2018-08-10] MEDS ORDERED: ACETAMINOPHEN INJECTION 100 ML IVPB ONE (14:03)
[2018-08-10 16:35] VITALS: BP 154/80; PULSE 60; TEMP 97.9
--- NOTE | 2018-08-11 19:45 | PATH ---
Surgical Pathology Report Patient Name: ROBBIN PABLO [facility]. Rec. #: [id number] /Age/Gender: 1980 (Age: 37) / M Account: [id number] Location: [facility] Taken: 08/10/2018 Received: 08/10/2018 Reported: 08/11/2018 Physicians: Dustin Gupta M.D. Specimen(s) Received FORESKIN Clinical History Phimosis Final Diagnosis FORESKIN, CIRCUMCISION: FORESKIN. Electronically Signed Sharon Paul M.D. Gross Description Received in formalin labeled "foreskin," are 2 rhodes, wrinkled, unoriented portions of skin measuring 2.7 x 1.8 x 0.5 cm and 3.2 x 2.0 x 0.5 cm. No discrete lesions are identified. Rn Unit Manager sections are submitted in one cassette. /08/10/201808/10/2018
== END 2018-08-10 16:43 | disposition home or self-care (01) ==
LOC: JASU-SURG 05:09
PROVIDERS: ATTEND Urology
PROC: 0VTTXZZ Resection of Prepuce, External Approach (ICD-10-PCS; principal; 2018-08-10 13:30)
DX: N47.1 Phimosis (principal)
CPT/HCPCS: 88304-TC; 94760; J0131

== ENCOUNTER 2018-11-09 11:17 | Day surgery (SDC) | payer OTHER ==
[2018-11-08 15:17] VITALS: BMI 25.8
--- NOTE | 2018-11-09 13:06 | HP ---
History & Physical Update - History History: No Change - Physical Physical: No Change - Assessment Assessment: No Change - Plan Plan: No Change
[2018-11-09] MEDS ORDERED: ACETAMINOPHEN 1000 MG/100 ML VIAL (NON FORMULARY) IVPB ONE (13:07)
[2018-11-09] MEDS ORDERED: DEXTROSE 5%-0.45% SALINE 1,000 ML IV SCH (13:15)
[2018-11-09] MEDS ORDERED: IBUPROFEN 800 MG/8 ML IJ IVPB SCH (13:15)
[2018-11-09] MEDS ORDERED: fentaNYL CITRATE 250 MCG/5 ML VIAL ONE (13:33)
[2018-11-09] MEDS ORDERED: PROPOFOL 20 ML ONE (13:33)
[2018-11-09] MEDS ORDERED: MIDAZOLAM HCL 2 MG/2 ML SINGLE DOSE VIAL ONE (13:34)
[2018-11-09] MEDS ORDERED: LIDOCAINE HCL 1%, 10 MG/ML (20ML VIAL) ONE (13:46)
[2018-11-09] MEDS ORDERED: BUPIVACAINE HCL/PF 0.5% (5MG/ML) 10 ML VIAL ONE (13:46)
[2018-11-09] MEDS ORDERED: ceFAZolin SODIUM 1 GM VIAL IVPB ONE (13:50)
[2018-11-09] MEDS ORDERED: LIDOCAINE HCL 1%, 10 MG/ML (20ML VIAL) INF ONE (13:55)
[2018-11-09] MEDS ORDERED: BACITRACIN 15 GM TUBE TOPICAL OINTMENT ONE (14:06)
[2018-11-09] MEDS ORDERED: oxyCODONE HCL 5 MG TABLET PO PRN (14:35)
[2018-11-09] MEDS ORDERED: ONDANSETRON 4 MG/2 ML VIAL IVPUSH PRN (14:35)
[2018-11-09] MEDS ORDERED: LACTATED RINGERS SOLUTION 1,000 ML IV SCH (14:45)
[2018-11-09] MEDS ORDERED: ACETAMINOPHEN INJECTION 100 ML IVPB ONE (15:00)
[2018-11-09 16:20] VITALS: TEMP 97.7
--- NOTE | 2018-11-09 16:34 | OP ---
DATE OF OPERATION: 11/09/2018 PREOPERATIVE DIAGNOSIS: Penile adhesions and phimosis. PROCEDURE: Revision circumcision. ANESTHESIA: LMA mask with local. SURGEON: Dustin Gupta MD SPECIMEN: Portion of foreskin. ESTIMATED BLOOD LOSS: Minimal. DRAINS: No drains. PREOPERATIVE INDICATIONS: Patient is a 38-year-old male who presented last year with an unretractable foreskin. He had reported this had been like this for several years and on examination he was unable to retract the foreskin as it was adherent to the glans. He underwent a circumcision at that time which was unremarkable except for the extensive fibrosis and inflammation noted. While it has healed, there is still some unevenness to the circumcision. He comes today for revision circumcision. OPERATIVE DESCRIPTION: Patient was brought to the OR, placed on the table in the supine position and given IV antibiotics and general anesthesia. The groin was prepped and draped sterilely, and timeout was performed. Local block with a ring block was done with 1% lidocaine at the base of the penis. On examination, approximately a quarter of the distal shaft skin was adherent to the glans itself, and there were smaller adhesions throughout. A dissection was performed to remove the skin from the glans. A strip of tissue in a sleeve fashion was then excised from just below the rosenberg just to the distal aspect of the penile shaft. This portion of skin was sent off for pathology. The skin edges were then reapposed using 3-0 chromic suture in an interrupted fashion the glans from the distal shaft penis. At the end of the procedure, the result appeared to be regular and desired. The urethral meatus was noted and was open. The wound was then dressed. The patient was woken up. DUSTIN GUPTA M.D. [id number]
[2018-11-09 20:49] VITALS: BP 148/100; PULSE 78
--- NOTE | 2018-11-09 21:52 | PN ---
Progress Note (short form) - Note Progress Note: patient had voided only a small amount post op (according to him) 14Fr straight cath placed. 200 cc clear urine drained. patient feels better - discharge home.
--- NOTE | 2018-11-13 14:04 | PATH ---
Surgical Pathology Report Patient Name: ROBBIN PABLO Med. Rec. #: [id number] /Age/Gender: 1980 (Age: 38) / M Account: [id number] Location: [facility] Taken: 11/09/2018 Received: 11/10/2018 Reported: 11/13/2018 Physicians: Dustin Gupta M.D. Specimen(s) Received FORESKIN Clinical History Phimosis Final Diagnosis FORESKIN, EXCISION: SEGMENT OF FORESKIN WITH HYPERTROPHIC SCAR, MODERATE ACUTE AND CHRONIC INFLAMMATION, HISTIOCYTIC REACTION, AND FOCAL FOLLICULAR SQUAMOUS EPITHELIAL INCLUSION IN THE DERMIS. Electronically Signed Eleuterio Alberto M.D. Gross Description Received in formalin labeled "foreskin," is a 6.5 x 1.4 x 0.4 cm rhodes brown, wrinkled portion of skin, consistent with foreskin. No discrete epidermal lesions are identified. Front Office Spec sections are submitted in one cassette. /11/10/2018 saudi11/10/2018
== END 2018-11-09 22:00 | disposition home or self-care (01) ==
LOC: JASU-SURG 11:17
PROVIDERS: ATTEND Urology
PROC: 0VTTXZZ Resection of Prepuce, External Approach (ICD-10-PCS; principal; 2018-11-09 13:00)
DX: N47.1 Phimosis (principal); N47.5 Adhesions of prepuce and glans penis
CPT/HCPCS: 88304-TC; 94760; J0131